=== PATIENT | female | born 1955 | race Caucasian/White ===

== ENCOUNTER 2018-12-29 16:59 | Emergency (ER) | payer MEDICAID ==
--- NOTE | 2018-12-29 17:46 | EDM.PDOC ---
ED HPI GENERAL MEDICAL PROBLEM - General Chief Complaint: Upper Extremity Injury/Pain Stated Complaint: RIGHT 5TH FINGER INJURY Time Seen by Provider: 12/29/18 17:38 Source of Information: Reports: Patient, Family, RN Notes Reviewed History Limitations: Reports: No Limitations - History of Present Illness INITIAL COMMENTS - FREE TEXT/NARRATIVE: 63-year-old female presents emergency department today following a trauma at home she fell and her dig\digitalis No. 5 on her right hand accidentally went in between the board slots on the steps on the deck and causing a twisting injury to her finger she now has difficulty moving it with pain Right Finger-Little Pain Score (Numeric/FACES): 1 - Related Data Allergies Allergy/AdvReac Type Severity Reaction Status Date / Time No Known Allergies Allergy Verified 12/29/18 17:18 Home Meds: Home Meds Insulin Glargine,Hum.Rec.Anlog [Basaglar Kwikpen U-100] 33 units SQ DAILY [History] Lisinopril 10 mg PO DAILY 12/29/18 [History] atorvaSTATin Calcium [Atorvastatin Calcium] 40 mg PO DAILY 12/29/18 [History] metFORMIN HCl [Metformin HCl] 850 mg PO DAILY 12/29/18 [History] Past Medical History HEENT History: Reports: Impaired Vision Cardiovascular History: Reports: High Cholesterol FLAMER AFTER LASTING History: Reports: Endocrine/Metabolic History: Reports: Diabetes, Type II Hematologic History: Reports: Blood Transfusion(s) - Past Surgical History Head Surgeries/Procedures: Reports: None Cardiovascular Surgical History: Reports: None Endocrine Surgical History: Reports: None Dermatological Surgical History: Reports: None Social & Family History - Tobacco Use Smoking Status *Q: Never Smoker Second Hand Smoke Exposure: No - Caffeine Use Caffeine Use: Reports: Coffee, Soda - Recreational Drug Use Recreational Drug Use: No Review of Systems - Review of Systems Review Of Systems: See Below Musculoskeletal: Reports: Hand Pain ED EXAM, GENERAL - Physical Exam Exam: See Below Free Text/Narrative:: Examination of the right hand digit #5 is pointing to the lateral aspect limited range of motion and edema and ecchymosis is noted around the MCP joints on that hand tenderness to palpation as well Course - Vital Signs Last Recorded V/S: Last Vital Signs Temp 98.6 F 12/29/18 17:21 Pulse 87 12/29/18 17:21 Resp 15 12/29/18 17:21 BP 145/67 H 12/29/18 17:21 Pulse Ox 98 12/29/18 17:21 Departure - Departure Time of Disposition: 18:41 Disposition: Home, Self-Care 01 Condition: Fair Clinical Impression: Fracture of proximal phalanx of digit of right hand Qualifiers: Encounter type: initial encounter Fracture type: closed Qualified Code(s): S62.619A - Displaced fracture of proximal phalanx of unspecified finger, initial encounter for closed fracture - Discharge Information Referrals: Eloy Bravo MD [Primary Care Provider] - Forms: ED Department Discharge Additional Instructions: [place] ibuprofen for baseline pain control, use hydrocodone for breakthrough pain, please call the orthopedics clinic in the morning [phone] - Assessment/Plan Plan: Assessment Acuity = acute Site and laterality = Right proximal phalangeal fracture digit #5 spiral type closed Etiology = secondary trauma Manifestations = pain] Location of injury = Home Lab values = x-ray describes fracture above Plan She is placed in a volar splint 15 will follow-up with orthopedics tomorrow hydrocodone 5/325 one tab by mouth 3 times a day when necessary total #10 provided for pain This note was dictated using [employer] voice recognition software please call with any questions on syntax or grammar.
--- NOTE | 2018-12-29 18:39 | CRLCR ---
Indication: Fifth finger injury Technique: Three views right 5th digit Comparison: None Findings: Bones: Mildly displaced, comminuted fracture of the mid to distal diaphysis of the right 5th proximal phalanx. Joint spaces: Mild degenerative changes in the distal interphalangeal joints. Soft tissues: Mild soft tissue swelling of the 5th digit. Impression: Minimally displaced comminuted fracture of the mid to distal diaphysis of the right 5th proximal phalanx. Dictated by Renea Hayden MD @ Dec 29 2018 6:38PM Signed by Dr. Renea Hayden @ Dec 29 2018 6:38PM
== END 2018-12-29 18:54 | disposition home or self-care (01) ==
LOC: JP.ED 16:59
DX: S62.616A Displaced fracture of proximal phalanx of right little finger, initial encounter for closed fracture (principal); E11.9 Type 2 diabetes mellitus without complications; E78.00 Pure hypercholesterolemia, unspecified; Z79.4 Long term (current) use of insulin; W19.XXXA Unspecified fall, initial encounter
CPT/HCPCS: 29125; 73140-F9; 99283-25